=== PATIENT | female | born 1945 | race Caucasian/White ===

== ENCOUNTER → 2016-11-14 | Outpatient (REF) | payer OTHER ==
[2016-11-14 13:20] LABS: FREE T4 1.14 NG/DL (0.76-1.46)
== END ==
LOC: M LAB REF 12:01
PROVIDERS: ATTEND Family Medicine
DX: E03.4 Atrophy of thyroid (acquired) (principal)

== ENCOUNTER → 2017-04-10 | Outpatient (CLI) | payer OTHER ==
[2017-04-10 14:29] LABS: FOLATE > 24.0 NG/ML (>5.4); FREE T4 1.44 NG/DL (0.76-1.46); VITAMIN B12 LEVEL 1782 PG/ML (247-911)
== END ==
LOC: M LAB 12:35
PROVIDERS: ATTEND Psychiatry & Neurology Neurology
DX: R41.3 Other amnesia (principal); R26.89 Other abnormalities of gait and mobility

== ENCOUNTER → 2018-01-23 | Outpatient (REF) | payer OTHER ==
[2018-01-23 17:14] LABS: RETICULOCYTE # 75.2 10^9/L (17-77); RETICULOCYTE % 2.6 % (0.5-1.5)
[2018-01-23 18:06] LABS: FOLATE > 24.0 NG/ML (>5.4)
[2018-01-23 18:06] LABS: VITAMIN B12 LEVEL 604 PG/ML (247-911)
== END ==
LOC: M LAB REF 16:47
DX: D61.818 Other pancytopenia (principal)
CPT/HCPCS: 82746